=== PATIENT | male | born 1995 | race Caucasian/White ===

== ENCOUNTER 2018-03-01 21:49 | Emergency (ER) | payer OTHER ==
[2018-03-01] MEDS ORDERED: APIXABAN 5 MG TAB PO ONE (22:01)
--- NOTE | 2018-03-01 22:01 | EDPHY ---
H & P Stated Complaint: DVT R LEG Time Seen by Provider: 03/01/18 21:57 HPI/ROS: HPI: This is a 22-year-old male who presents with Chief Complaint: Blood clot right leg Location: Right calf Quality: Blood clot Duration: Several days Signs and Symptoms: No bleeding, no radiation, no numbness, no weakness, no tingling, no incontinence, no decreased range of motion, no swelling, + pain, no fever, no skin color changes Timing: Gradual onset, constant Severity: Mild Context: Patient presents from [facility] with positive ultrasound this evening on the right lower leg. Ultrasound report shows right calf peroneal vein deep venous thrombosis with pain see a veins from the popliteal vein superiorly. Patient reports on the he sustained an ankle injury and followed with his Orthopedics in [facility]. He was diagnosed with a partial Achilles tendon tear and ankle fracture via MRI. He was told to be toe-touch weight-bearing status and use crutches to aid ambulation. The patient flew from [facility] to [place] on the and then returned back to [place] on the . Patient reports on February 26, 2018 he started to experience right calf discomfort and achiness. He denies any skin color changes, warmth, decreased range of motion, radiculopathy. Patient denies any chest pain, shortness of breath, palpitations. Symptoms continue to persist so he went to the orthopedic urgent care this evening as he has no primary care provider in the area. No clotting disorders in the family. Modifying Factors: None Comment: ROS: A comprehensive 10 system review of systems is otherwise negative aside from elements mentioned in the history of present illness. MEDICAL/SURGICAL/SOCIAL HISTORY: Medical history: ANKLE INJURY, PRK. Does not take any regular medications. Surgical history: Denies Social history: Recently moved to the area from [facility]. Employed. Denies drug use. CONSTITUTIONAL: Well-developed, well-nourished, polite and cooperative young adult white male, awake and alert, no obvious distress HEENT: Atraumatic and normocephalic. NECK: supple, no midline tenderness, flexion 45 degrees, extension 45 degrees, right and left lateral flexion 45 degrees. No meningismus. Cardiovascular: Normal S1/S2, regular rate, regular rhythm, without murmur rub or gallop. PULMONARY/CHEST: Symmetrical and nontender. no crepitus. Clear to auscultation bilaterally. Good air movement. No accessory muscle usage. ABDOMEN: Soft, nondistended, nontender, no ecchymosis. EXTREMITIES: 2/2 pulses, strength 5/5, right Ankle: Plantar flexion to 50, dorsiflexion to 20. Foot inversion to 35 degree. Mild tenderness/swelling Anterior talofibular ligament. Mild tenderness/swelling Calcaneofibular ligament, no tenderness/swelling posterior talofibular ligament, no tenderness/ swelling posterior inferior tibiofibular ligament. Achilles tendon not intact. Positive Homans sign. Right KNEE: no effusion, no medial and lateral joint line tenderness, full extension to 180, flexion to 120. No pain with varus and valgus exam. No pain with anterior drawer or posterior drawer test. Extensor mechanism intact. DIP/PIP/MCP flexion/extension intact with good light touch sensation. no deformities, no clubbing, no cyanosis or edema. NEUROLOGICAL: no focal neuro deficits. GCS 15. Light touch sensation intact. SKIN: Warm and dry, no erythema. no rash. Good capillary refill. Source: Patient Exam Limitations: No limitations - Personal History Current Tetanus Diphtheria and Acellular Pertussis (TDAP): Yes - Medical/Surgical History Other PMH: ANKLE INJURY, PRK - Social History Smoking Status: Never smoked Constitutional: Initial Vital Signs Temperature (C) 36.8 C 03/01/18 21:53 Heart Rate 70 03/01/18 21:53 Respiratory Rate 16 03/01/18 21:53 Blood Pressure 141/70 H 03/01/18 21:53 O2 Sat (%) 97 03/01/18 21:53 O2 Delivery Mode Room Air Allergies/Adverse Reactions: amoxicillin Allergy (Verified 03/01/18 21:51) azithromycin [From Zithromax] Allergy (Verified 03/01/18 21:51) Home Medications: Medication Instructions Recorded Apixaban [Eliquis 30-day Starter 1 kit PO AD #1 kit 03/01/18 Pack] oxyCODONE/APAP 5/325 [Percocet 1 - 2 tab PO Q4H PRN #10 tab 03/01/18 5/325 (*)] Medical Decision Making - Diagnostics Imaging Results: Imaging Impressions Extremity Venous Study 03/01/18 20:38 Impression: Right calf peroneal vein deep venous thrombosis, with patency of veins from the popliteal vein superiorly. Telephone results discussed with Jesse Medina PA-C, television news video editor for [facility]. Procedures: Procedure: Splint placement. A right Woods boot was applied the Emergency Room emergency room technician. After application of the splint I returned and re-examined the patient. The splint was adequately immobilizing the joint and distal to the splint the patient's circulation and sensation was intact. ED Course/Re-evaluation: Vital signs reviewed and stable upon arrival. No hypoxia, respiratory distress. Patient is healthy with no clot disorders in the family. Patient is appropriate to treat outpatient. No laboratory studies are indicated. Patient was given Eliquis in the emergency room and a 30 day the starter pack. He is referred to Internal Medicine to establish primary care. Patient was placed in the Woods boot and advised of toe-touch weight-bearing status. Already has MRI and images do not need to be repeated. Patient already has crutches. Referral to given to Dr. Quach to follow-up for orthopedic care. Prescription for Percocet dispense 10. Given for severe/breakthrough pain. No signs of neurovascular compromise/tenting of skin/compartment syndrome/ extremities and joints examined above and below area of concern and are neurovascularly intact/cellulitis. This patient was seen under the supervision of my secondary supervising physician. I evaluated care for this patient independently. Discussed this patient with Dr. Carvajal who did not see the patient. Differential Diagnosis: Differential diagnosis includes but is not limited to right calf peroneal vein DVT. Departure - Departure Disposition: Home, Routine, Self-Care Clinical Impression: Acute deep vein thrombosis (DVT) of right peroneal vein Partial tear of right Achilles tendon Qualifiers: Encounter type: initial encounter Qualified Code(s): S86.011A - Strain of right Achilles tendon, initial encounter Closed right ankle fracture Qualifiers: Encounter type: initial encounter Qualified Code(s): S82.891A - Other fracture of right lower leg, initial encounter for closed fracture Condition: Good Instructions: Deep Vein Thrombosis (ED), Ankle Fracture (ED), ORIF of an Ankle Fracture (DC), Achilles Tendon Rupture (ED), Achilles Tendon Repair (DC) Additional Instructions: Wear the Woods boot while out of bed until pain. Use crutches to aid ambulation. Start with toe-touch weight-bearing status. Take Tylenol 650 mg every 4 hours as needed for pain. Take Percocet every 4-6 hours as needed for severe, breakthrough pain. Do not take Tylenol and Percocet concomitantly. Apply ice for 30 minutes at a time; 2-3 times per day as needed. Elevate right lower extremity as needed to decrease swelling. Take Eliquis as prescribed. You will be given a one-month starter pack but will need at a minimum 2 more months. Your primary care provider will order this. Do not take Eliquis with NSAIDs which include ibuprofen, Motrin, Advil as you are at increased risk for GI bleeding. Follow up with Orthopedics in 5-7 days at which time they will evaluate and recommend with you if conservative management versus surgery is indicated. Please establish primary care within the next 1-2 weeks. Referrals: Cordell Quach MD [Medical Doctor] - As per Instructions Shivam Fermin MD [Medical Doctor] - As per Instructions Prescriptions: Apixaban [Eliquis 30-day Starter Pack] 1 kit PO AD #1 kit oxyCODONE/APAP 5/325 [Percocet 5/325 (*)] 1 - 2 tab PO Q4H PRN #10 tab PRN Reason: Pain, Severe
[2018-03-01 22:51] VITALS: BP 138/67
== END 2018-03-01 22:51 | disposition home or self-care (01) ==
LOC: EDSTATUS 21:49
DX: I82.491 Acute embolism and thrombosis of other specified deep vein of right lower extremity (principal); S82.891A Other fracture of right lower leg, initial encounter for closed fracture; S86.011A Strain of right Achilles tendon, initial encounter; X58.XXXA Exposure to other specified factors, initial encounter; Y92.9 Unspecified place or not applicable; Y93.9 Activity, unspecified; Y99.9 Unspecified external cause status; Z88.0 Allergy status to penicillin
CPT/HCPCS: L4386

== ENCOUNTER → 2018-06-09 | Outpatient (CLI) | payer OTHER | LOC: FIMAGING 14:20 | PROVIDERS: ATTEND Family Medicine | DX: I82.441 Acute embolism and thrombosis of right tibial vein (principal) ==